=== PATIENT | male | born 1975 | race Asian ===

== ENCOUNTER 2023-01-19 09:29 | Emergency (ER) | payer OTHER, SELFPAY ==
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
[2023-01-19 09:48] VITALS: BP 116/75; BP 130/90; PULSE 66; PULSE 75; RESP 18; TEMP 36.6; O2SAT 98; O2SAT 99; BMI 25.8
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
[2023-01-19] MEDS: Acetaminophen 325 MG TABLET 650 MG PO (10:48)
--- NOTE | 2023-01-19 13:27 | PC.NURSE ---
Patient resting on stretcher with eyes closed at this time, no s/s of distress noted.
== END 2023-01-19 13:57 | disposition home or self-care (01) ==
PROVIDERS: Emergency Provider Emergency Medicine
DX: Z04.1 Encounter for examination and observation following transport accident (principal); M79.18 Myalgia, other site
CPT/HCPCS: 70450; 72072; 72100; 72125; 99284